=== PATIENT | male | born 1965 | race Caucasian/White ===

== ENCOUNTER 2019-02-18 02:48 | Inpatient (IN) ==
[2019-02-18] MEDS ORDERED: Nitroglycerin 0.4 MG TAB.SUBL SL PRN (04:08)
[2019-02-18] MEDS ORDERED: Dextrose Gel 15 GM/37.5 ML TUBE PO PRN ×2 (04:23)
[2019-02-18] MEDS ORDERED: *HR* Dextrose 50 % in Water (Syg) 50 ML SYRINGE IVP PRN (04:23)
[2019-02-18] MEDS ORDERED: Ipratropium/Albuterol Neb 3 ML IH PRN (04:37)
[2019-02-18] MEDS ORDERED: Ipratropium/Albuterol Neb 3 ML IH STA (04:37)
[2019-02-18] MEDS: *HR* Heparin 5,000 UNIT/ML VIAL SQ SCH ×2 (05:04→16:51)
[2019-02-18] MEDS: 0.9 % Sodium Chloride 1,000 ML IVC SCH ×2 (05:04→06:09)
[2019-02-18] MEDS ORDERED: Insulin LISPRO 300 UNITS/3 ML VIAL SQ SCH ×2 (06:00→11:13)
[2019-02-18 07:34] LABS: Basophils # 0.1 K/mcL (0.0-0.2); Basophils % 0.5 %; Eosinophils # 0.3 K/mcL (0.0-0.6); Hematocrit 32.8 % (37.5-50.1); Hemoglobin 10.3 g/dL (12.9-16.9); Immature Granulocytes % 0.5 % (0-4); Lymphocytes # 2.4 K/mcL (0.6-4.6); Lymphocytes % 23.3 %; Mean Corpuscular HGB Conc 31.4 g/dL (31.6-35.5); Mean Corpuscular Hemoglobin 27.5 pg (28.0-33.3); Mean Corpuscular Volume 87.7 fL (83.0-100.0); Monocytes # 0.9 K/mcL (0.0-1.3); Monocytes % 8.9 %; Neutrophils # 6.7 K/mcL (1.6-8.9); Platelet Count 234 K/mcL (140-400); Red Blood Count 3.74 M/mcL (4.19-5.50); Red Cell Distribution Width 14.8 % (11.5-14.5); Segmented Neutrophils % 63.8 %; White Blood Count 10.5 K/mcL (4.3-11.1)
[2019-02-18 07:51] LABS: Chol/HDL Ratio 2.4 (0-4.9)
[2019-02-18 07:53] LABS: BUN/Creatinine Ratio 16 (6-26); Blood Urea Nitrogen 15 mg/dL (6-20); Calcium 8.7 mg/dL (8.6-10.3); Carbon Dioxide 23 mEq/L (23-29); Chloride 104 mEq/L (98-107); Glucose 136 mg/dL (70-105); Osmolality,Calculated 287 (280-300); Potassium 4.2 mEq/L (3.5-5.1); Sodium 137 mEq/L (136-145); Troponin I < 0.03 ng/mL (< 0.04); eGFR For African Americans > 60 (> 60); eGFR For Non-African Americans > 60 (> 60)
[2019-02-18 08:08] LABS: Estimated Average Glucose 183 mg/dl
[2019-02-18 08:26] LABS: Amphetamine Screen,Urine Negative ng/mL (Cutoff=1000); Barbiturate Screen,Urine Negative ng/mL (Cutoff=200); Benzodiazepines Screen,Urine Negative ng/mL (Cutoff=200); Cannabinoid Screen,Urine Negative ng/mL (Cutoff = 50); Cocaine Screen,Urine Negative ng/mL (Cutoff= 300); Opiate Screen,Urine Negative ng/mL (Cutoff=300); Phencyclidine Screen,Urine Negative ng/mL (Cutoff=25)
[2019-02-18] MEDS ORDERED: ISOSORBIDE MONONITRATE PO SCH (09:00)
[2019-02-18] MEDS ORDERED: NON-FORMULARY MEDICATION 1 EACH EACH (Spironolact/Hydrochlorothiazid [Aldactazide 25-25 Ta PO SCH (09:00)
[2019-02-18] MEDS ORDERED: INSULIN GLARGINE 100 UNIT SQ SCH (09:00)
[2019-02-18] MEDS: Aspirin Enteric Coated 81 MG Tablet PO SCH (10:25)
[2019-02-18] MEDS: Insulin DETEMIR 100 UNIT/ML X5UNITS SQ SCH (11:08)
[2019-02-18] MEDS: Isosorbide MONOnitrate (24 HR) 30 MG TAB.ER.24H PO SCH (13:02)
[2019-02-18] MEDS: Insulin LISPRO 300 UNITS/3 ML VIAL SQ SCH ×2 (13:26→18:19)
[2019-02-19] MEDS: *HR* Heparin 5,000 UNIT/ML VIAL SQ SCH ×2 (05:21→17:51)
[2019-02-19 06:10] LABS: Hematocrit 34.3 % (37.5-50.1); Hemoglobin 10.8 g/dL (12.9-16.9); Mean Corpuscular HGB Conc 31.5 g/dL (31.6-35.5); Mean Corpuscular Hemoglobin 27.3 pg (28.0-33.3); Mean Corpuscular Volume 86.6 fL (83.0-100.0); Mean Platelet Volume 8.8 fL (9.4-12.4); Platelet Count 244 K/mcL (140-400); Red Blood Count 3.96 M/mcL (4.19-5.50); Red Cell Distribution Width 14.6 % (11.5-14.5); White Blood Count 7.4 K/mcL (4.3-11.1)
[2019-02-19 06:32] LABS: BUN/Creatinine Ratio 19 (6-26); Blood Urea Nitrogen 16 mg/dL (6-20); Calcium 9.1 mg/dL (8.6-10.3); Carbon Dioxide 24 mEq/L (23-29); Chloride 101 mEq/L (98-107); Glucose 121 mg/dL (70-105); Magnesium 1.9 mg/dL (1.6-2.6); Osmolality,Calculated 288 (280-300); Potassium 4.5 mEq/L (3.5-5.1); Sodium 138 mEq/L (136-145); eGFR For African Americans > 60 (> 60); eGFR For Non-African Americans > 60 (> 60)
[2019-02-19] MEDS: Aspirin Enteric Coated 81 MG Tablet PO SCH (09:12)
[2019-02-19] MEDS: Isosorbide MONOnitrate (24 HR) 30 MG TAB.ER.24H PO SCH (09:12)
[2019-02-19] MEDS: Insulin LISPRO 300 UNITS/3 ML VIAL SQ SCH ×3 (09:13→17:18)
[2019-02-19] MEDS: Insulin DETEMIR 100 UNIT/ML X5UNITS SQ SCH (09:15)
[2019-02-19] MEDS: Regadenoson 0.4 MG/5 ML SYRINGE IVP ONE ×2 (09:29→10:13)
[2019-02-20 03:20] LABS: Hematocrit 33.6 % (37.5-50.1); Hemoglobin 10.6 g/dL (12.9-16.9); Mean Corpuscular HGB Conc 31.5 g/dL (31.6-35.5); Mean Corpuscular Hemoglobin 27.2 pg (28.0-33.3); Mean Corpuscular Volume 86.2 fL (83.0-100.0); Mean Platelet Volume 9.1 fL (9.4-12.4); Platelet Count 284 K/mcL (140-400); Red Cell Distribution Width 14.7 % (11.5-14.5); White Blood Count 8.5 K/mcL (4.3-11.1)
[2019-02-20 03:40] LABS: BUN/Creatinine Ratio 18 (6-26); Blood Urea Nitrogen 21 mg/dL (6-20); Calcium 8.8 mg/dL (8.6-10.3); Carbon Dioxide 26 mEq/L (23-29); Chloride 99 mEq/L (98-107); Glucose 135 mg/dL (70-105); Magnesium 1.8 mg/dL (1.6-2.6); Osmolality,Calculated 287 (280-300); Potassium 4.3 mEq/L (3.5-5.1); Sodium 136 mEq/L (136-145); eGFR For African Americans > 60 (> 60); eGFR For Non-African Americans > 60 (> 60)
[2019-02-20] MEDS: *HR* Heparin 5,000 UNIT/ML VIAL SQ SCH ×2 (05:10→17:23)
[2019-02-20] MEDS: Insulin LISPRO 300 UNITS/3 ML VIAL SQ SCH ×3 (09:38→17:23)
[2019-02-20] MEDS: Isosorbide MONOnitrate (24 HR) 30 MG TAB.ER.24H PO SCH (11:25)
[2019-02-20] MEDS: Aspirin Enteric Coated 81 MG Tablet PO SCH (11:26)
[2019-02-20] MEDS: Insulin DETEMIR 100 UNIT/ML X5UNITS SQ SCH (11:28)
[2019-02-20] MEDS: Nicotine 21 MG PATCH.TD24 TD SCH (19:55)
[2019-02-20] MEDS: hydrOXYzine pamoate 25 MG CAPSULE PO SCH (19:55)
[2019-02-20] MEDS: (Loxapine Succinate [Loxapine] 25 MG) PO SCH (19:58)
[2019-02-20] MEDS: Budesonide/Formoterol 160/4.5 1 PUFF INH IH SCH (20:03)
[2019-02-21] MEDS: *HR* Heparin 5,000 UNIT/ML VIAL SQ SCH ×2 (05:30→16:58)
[2019-02-21] MEDS: Isosorbide MONOnitrate (24 HR) 30 MG TAB.ER.24H PO SCH (07:39)
[2019-02-21] MEDS: hydrOXYzine pamoate 25 MG CAPSULE PO SCH ×3 (07:39→21:33)
[2019-02-21] MEDS: Metoprolol XL (24 HR) Succ 25 MG TAB.ER.24H PO SCH (07:40)
[2019-02-21] MEDS: Aspirin Enteric Coated 81 MG Tablet PO SCH (07:40)
[2019-02-21] MEDS: Insulin DETEMIR 100 UNIT/ML X5UNITS SQ SCH (07:41)
[2019-02-21] MEDS: Insulin LISPRO 300 UNITS/3 ML VIAL SQ SCH ×3 (07:42→17:00)
[2019-02-21] MEDS: (Loxapine Succinate [Loxapine] 25 MG) PO SCH ×2 (07:44→21:33)
[2019-02-21] MEDS: Budesonide/Formoterol 160/4.5 1 PUFF INH IH SCH ×2 (07:57→19:30)
[2019-02-21] MEDS ORDERED: Adenosine 90 MG/30 ML MLS IV ONE (08:03)
[2019-02-21] MEDS ORDERED: ISOVUE-370 200 ML INFUS..BTL ONE (11:43)
[2019-02-21] MEDS ORDERED: 0.9 % Sodium Chloride 2,000 ML ONE (11:43)
[2019-02-21] MEDS ORDERED: Heparin 1,000 UNITS/500 mL 500 ML ONE (11:43)
[2019-02-21] MEDS ORDERED: Nitroglycerin 1,000 MCG/10 ML VIAL IV ONE (11:43)
[2019-02-21] MEDS ORDERED: *HR* Heparin 10,000 UNIT/10 ML VIAL ONE (11:43)
[2019-02-21] MEDS ORDERED: *HR* Midazolam HCl 2 MG/2 ML VIAL ONE (12:15)
[2019-02-21] MEDS ORDERED: methylPREDNISolone 125 MG/2 ML VIAL ONE (12:16)
[2019-02-21] MEDS ORDERED: *HR* FentaNYL (PF) 100 MCG/2 ML VIAL ONE (12:16)
[2019-02-21] MEDS ORDERED: Tirofiban 12.5 MG/250ML 12.5 MG/250 ML BAG ONE (12:52)
[2019-02-21] MEDS ORDERED: *HR* Ticagrelor 90 MG TABLET ONE (13:05)
[2019-02-21] MEDS ORDERED: Tirofiban 12.5 MG/250ML 12.5 MG/250 ML BAG IVC SCH (13:45)
[2019-02-21] MEDS: Nicotine 21 MG PATCH.TD24 TD SCH (16:59)
[2019-02-21] MEDS: *HR* Ticagrelor 90 MG TABLET PO SCH (21:33)
[2019-02-21] MEDS ORDERED: Insulin LISPRO 300 UNITS/3 ML VIAL SQ SCH (21:55)
[2019-02-22 02:17] LABS: Basophils % 0.1 %; Hemoglobin 10.5 g/dL (12.9-16.9); Immature Granulocytes % 0.7 % (0-4); Lymphocytes # 0.8 K/mcL (0.6-4.6); Mean Corpuscular HGB Conc 31.8 g/dL (31.6-35.5); Mean Corpuscular Hemoglobin 26.8 pg (28.0-33.3); Mean Corpuscular Volume 84.2 fL (83.0-100.0); Mean Platelet Volume 8.7 fL (9.4-12.4); Monocytes # 0.4 K/mcL (0.0-1.3); Monocytes % 5.4 %; Neutrophils # 6.7 K/mcL (1.6-8.9); Platelet Count 282 K/mcL (140-400); Red Blood Count 3.92 M/mcL (4.19-5.50); Red Cell Distribution Width 14.5 % (11.5-14.5); Segmented Neutrophils % 83.8 %
[2019-02-22 02:35] LABS: BUN/Creatinine Ratio 19 (6-26); Blood Urea Nitrogen 19 mg/dL (6-20); Calcium 8.9 mg/dL (8.6-10.3); Carbon Dioxide 21 mEq/L (23-29); Chloride 100 mEq/L (98-107); Glucose 250 mg/dL (70-105); Osmolality,Calculated 287 (280-300); Potassium 4.5 mEq/L (3.5-5.1); Sodium 133 mEq/L (136-145); eGFR For African Americans > 60 (> 60); eGFR For Non-African Americans > 60 (> 60)
[2019-02-22] MEDS: *HR* Heparin 5,000 UNIT/ML VIAL SQ SCH (04:56)
[2019-02-22] MEDS: Budesonide/Formoterol 160/4.5 1 PUFF INH IH SCH (07:45)
[2019-02-22] MEDS ORDERED: Aspirin 81 MG TAB.CHEW PO SCH (09:00)
[2019-02-22] MEDS: Insulin LISPRO 300 UNITS/3 ML VIAL SQ SCH (09:33)
[2019-02-22] MEDS: *HR* Ticagrelor 90 MG TABLET PO SCH (09:34)
[2019-02-22] MEDS: hydrOXYzine pamoate 25 MG CAPSULE PO SCH (09:35)
[2019-02-22] MEDS: Aspirin Enteric Coated 81 MG Tablet PO SCH (09:35)
[2019-02-22] MEDS: Isosorbide MONOnitrate (24 HR) 30 MG TAB.ER.24H PO SCH (09:35)
[2019-02-22] MEDS: (Loxapine Succinate [Loxapine] 25 MG) PO SCH (09:35)
[2019-02-22] MEDS: Metoprolol XL (24 HR) Succ 25 MG TAB.ER.24H PO SCH (09:38)
[2019-02-22 11:03] VITALS: BP 129/79
== END 2019-02-22 12:30 | disposition home or self-care (01) | DRG 175 ==
LOC: 3BNU → SUATTDRO 04:02
PROVIDERS: ADMIT Internal Medicine; ATTEND Internal Medicine

== ENCOUNTER 2019-03-02 23:36 | Observation (INO) ==
[2019-03-03] MEDS ORDERED: Aspirin 81 MG TAB.CHEW PO ONE (00:01)
[2019-03-03 00:49] LABS: Basophils # 0.1 K/mcL (0.0-0.2); Basophils % 0.6 %; Eosinophils # 0.3 K/mcL (0.0-0.6); Hematocrit 36.4 % (37.5-50.1); Immature Granulocytes % 0.9 % (0-4); Lymphocytes # 3.2 K/mcL (0.6-4.6); Lymphocytes % 28.2 %; Mean Corpuscular Hemoglobin 27.4 pg (28.0-33.3); Mean Corpuscular Volume 83.1 fL (83.0-100.0); Mean Platelet Volume 8.5 fL (9.4-12.4); Monocytes # 0.8 K/mcL (0.0-1.3); Monocytes % 6.8 %; Neutrophils # 6.9 K/mcL (1.6-8.9); Platelet Count 271 K/mcL (140-400); Red Blood Count 4.38 M/mcL (4.19-5.50); Red Cell Distribution Width 14.9 % (11.5-14.5); Segmented Neutrophils % 60.5 %; White Blood Count 11.4 K/mcL (4.3-11.1)
[2019-03-03 01:00] LABS: Prothrombin Time 11.2 Seconds (9.4-12.1)
[2019-03-03 01:02] LABS: Activated Partial Thrombo Time 38.9 Seconds (26.0-36.0)
[2019-03-03 01:14] LABS: BUN/Creatinine Ratio 14 (6-26); Blood Urea Nitrogen 14 mg/dL (6-20); Calcium 9.2 mg/dL (8.6-10.3); Carbon Dioxide 20 mEq/L (23-29); Chloride 102 mEq/L (98-107); Glucose 197 mg/dL (70-105); Osmolality,Calculated 282 (280-300); Potassium 3.9 mEq/L (3.5-5.1); Sodium 133 mEq/L (136-145); Troponin I < 0.03 ng/mL (< 0.04); eGFR For African Americans > 60 (> 60); eGFR For Non-African Americans > 60 (> 60)
[2019-03-03] MEDS ORDERED: Albuterol 2.5 MG/3 ML NEBULIZER IH ONE (01:22)
[2019-03-03] MEDS ORDERED: Nitroglycerin 0.4 MG TAB.SUBL SL PRN (02:17)
[2019-03-03] MEDS ORDERED: Dextrose Gel 15 GM/37.5 ML TUBE PO PRN ×2 (06:33)
[2019-03-03] MEDS ORDERED: *HR* Dextrose 50 % in Water (Syg) 50 ML SYRINGE IVP PRN (06:33)
[2019-03-03] MEDS ORDERED: D5% in Water 1,000 ML IVC PRN (06:33)
[2019-03-03 06:47] LABS: Basophils # 0.1 K/mcL (0.0-0.2); Basophils % 0.7 %; Eosinophils # 0.3 K/mcL (0.0-0.6); Eosinophils % 3.4 %; Hematocrit 37.8 % (37.5-50.1); Lymphocytes # 2.3 K/mcL (0.6-4.6); Lymphocytes % 27.8 %; Mean Corpuscular HGB Conc 31.7 g/dL (31.6-35.5); Mean Corpuscular Hemoglobin 27.4 pg (28.0-33.3); Mean Corpuscular Volume 86.3 fL (83.0-100.0); Mean Platelet Volume 8.5 fL (9.4-12.4); Monocytes # 0.6 K/mcL (0.0-1.3); Monocytes % 6.8 %; Neutrophils # 4.9 K/mcL (1.6-8.9); Platelet Count 229 K/mcL (140-400); Red Blood Count 4.38 M/mcL (4.19-5.50); Red Cell Distribution Width 14.9 % (11.5-14.5); Segmented Neutrophils % 60.3 %; White Blood Count 8.2 K/mcL (4.3-11.1)
[2019-03-03 07:03] LABS: BUN/Creatinine Ratio 13 (6-26); Blood Urea Nitrogen 13 mg/dL (6-20); Calcium 9.2 mg/dL (8.6-10.3); Carbon Dioxide 22 mEq/L (23-29); Chloride 104 mEq/L (98-107); Glucose 187 mg/dL (70-105); Osmolality,Calculated 289 (280-300); Potassium 3.8 mEq/L (3.5-5.1); Sodium 137 mEq/L (136-145); eGFR For African Americans > 60 (> 60); eGFR For Non-African Americans > 60 (> 60)
[2019-03-03] MEDS ORDERED: Metoprolol XL (24 HR) Succ 25 MG TAB.ER.24H PO SCH (09:00)
[2019-03-03] MEDS ORDERED: *HR* Ticagrelor 90 MG TABLET PO SCH (09:00)
[2019-03-03] MEDS ORDERED: Aspirin Enteric Coated 81 MG Tablet PO SCH (09:00)
[2019-03-03] MEDS: *HR* Heparin 5,000 UNIT/ML VIAL SQ SCH ×2 (10:28→13:37)
[2019-03-03] MEDS ORDERED: Insulin LISPRO 300 UNITS/3 ML VIAL SQ SCH (12:00)
[2019-03-03 12:07] VITALS: BP 116/77
== END 2019-03-03 16:34 | disposition home or self-care (01) ==
LOC: EMEROOARM 23:36 → 2ANU 23:36 → SUATTDRO 03-03 01:47 → 2ANU 03-03 02:05
PROVIDERS: ADMIT Internal Medicine; ATTEND Internal Medicine

== ENCOUNTER 2019-12-10 14:00 | Inpatient (IN) ==
[2019-12-10] MEDS ORDERED: Clindamycin 900 MG/50 ML 900 MG/50 ML IV.SOLN IVPB ONE (14:08)
[2019-12-10] MEDS ORDERED: Ringers Solution, Lactated 1,000 ML IVC SCH ×4 (14:15→21:19)
[2019-12-10] MEDS ORDERED: *HR* OxyCODONE Immed Rel 5 MG TABLET PO PRN ×2 (15:04→21:19)
[2019-12-10] MEDS ORDERED: Ondansetron 4 MG/2 ML VIAL IVP PRN ×2 (15:04→21:19)
[2019-12-10 15:16] LABS: Adenovirus Not Detected (Not Detect); Bordetella Pertussis Not Detected (Not Detect); Chlamydophila pneumoniae Not Detected (Not Detect); Coronavirus 229E Not Detected (Not Detect); Coronavirus HKU1 Not Detected (Not Detect); Coronavirus NL63 Not Detected (Not Detect); Coronavirus OC43 Not Detected (Not Detect); Human Metapneumovirus Not Detected (Not Detect); Human Rhinovirus/Enterovirus Not Detected (Not Detect); Influenza A Subtype 2009 H1 Not Detected (Not Detect); Influenza B Not Detected (Not Detect); Mycoplasma pneumoniae Not Detected (Not Detect); Parainfluenza Virus 1 Not Detected (Not Detect); Parainfluenza Virus 2 Not Detected (Not Detect); Parainfluenza Virus 3 Not Detected (Not Detect); Parainfluenza Virus 4 Not Detected (Not Detect); Respiratory Syncytial Virus Not Detected (Not Detect); SARS-CoV-2 Not Detected (Not Detect)
[2019-12-10] MEDS ORDERED: Lidocaine -MPF 2% 2 ML VIAL ONE (15:44)
[2019-12-10] MEDS ORDERED: *HR* FentaNYL (PF) 100 MCG/2 ML VIAL ONE (15:44)
[2019-12-10] MEDS ORDERED: Ondansetron 4 MG/2 ML VIAL ONE (15:44)
[2019-12-10] MEDS ORDERED: *HR* Rocuronium Bromide 50 MG/5 ML VIAL ONE ×2 (15:44→17:17)
[2019-12-10] MEDS ORDERED: *HR* Succinylcholine 200 MG/10 ML VIAL IVP ONE (15:44)
[2019-12-10] MEDS ORDERED: *HR* Propofol 200 MG/20 ML VIAL IVP ONE (15:44)
[2019-12-10] MEDS ORDERED: Lidocaine -MPF 4% 5 ML AMPUL ONE (15:46)
[2019-12-10] MEDS ORDERED: D5% in Lactated Ringers 1,000 ML IVC ONE (15:55)
[2019-12-10] MEDS ORDERED: Dexamethasone 4 MG/ML VIAL ONE (17:02)
[2019-12-10] MEDS ORDERED: *HR* Labetalol 20 MG/4 ML SYRINGE IVP ONE (17:04)
[2019-12-10] MEDS ORDERED: *HR* PHENYLEPHRINE 1,000 MCG/10 ML SYRINGE IVP ONE (17:16)
[2019-12-10] MEDS ORDERED: Ipratropium/Albuterol Neb 3 ML ONE (18:54)
[2019-12-10] MEDS ORDERED: Furosemide 40 MG/4 ML VIAL ONE (19:02)
[2019-12-10] MEDS: *HR* HYDROmorphone PF 0.5 MG/0.5 ML SYRINGE IVP PRN ×4 (19:12→20:06)
[2019-12-10] MEDS ORDERED: Acetaminophen IV 1,000 MG/100 ML INFUS..BTL IVPB ONE (19:42)
[2019-12-10] MEDS ORDERED: *HR* Dextrose 50 % in Water (Vial) 50 ML VIAL IVP PRN (21:19)
[2019-12-10] MEDS ORDERED: D5% in Water 1,000 ML IVC PRN (21:19)
[2019-12-10] MEDS ORDERED: Naloxone 0.4 MG/ML INJ IVP PRN (21:19)
[2019-12-10] MEDS ORDERED: Dextrose Gel 15 GM/37.5 ML TUBE PO PRN ×2 (21:19)
[2019-12-10] MEDS ORDERED: 0.9 % Sodium Chloride 1,000 ML IVC SCH (21:19)
[2019-12-10] MEDS ORDERED: Insulin LISPRO 300 UNITS/3 ML VIAL SQ SCH (21:19)
[2019-12-10] MEDS: Ipratropium/Albuterol Neb 3 ML IH SCH ×2 (22:03→23:30)
[2019-12-10] MEDS: Budesonide/Formoterol 160/4.5 1 PUFF INH IH SCH (22:04)
[2019-12-10] MEDS: Insulin DETEMIR 100 UNIT/ML X5UNITS SQ SCH (22:50)
[2019-12-10] MEDS: *HR* Heparin 5,000 UNIT/ML VIAL SQ SCH (22:50)
[2019-12-10] MEDS: Ketorolac 15 MG/ML VIAL IVP SCH (22:51)
[2019-12-10] MEDS: hydrOXYzine pamoate 25 MG CAPSULE PO SCH (22:52)
[2019-12-10] MEDS: Gabapentin 300 MG CAPSULE PO SCH (22:52)
[2019-12-10] MEDS: Sennosides/Docusate Sodium TABLET PO SCH (22:52)
[2019-12-10] MEDS: *HR* Metformin 500 MG TABLET PO SCH (22:52)
[2019-12-10] MEDS: QUEtiapine Fumarate 25 MG TABLET PO SCH (22:52)
[2019-12-10] MEDS: *HR* HYDROcodone/Acet 5/325 mg TABLET PO PRN (23:16)
[2019-12-11] MEDS: (Loxapine Succinate [Loxapine] 25 MG) PO SCH ×3 (02:21→21:36)
[2019-12-11] MEDS: Famotidine 20 MG TABLET PO SCH ×3 (03:29→21:34)
[2019-12-11] MEDS: Nystatin POWDER 30 GM BOTTLE TP SCH ×4 (03:30→21:34)
[2019-12-11] MEDS: *HR* HYDROcodone/Acet 5/325 mg TABLET PO PRN ×4 (03:31→21:33)
[2019-12-11] MEDS: Ipratropium/Albuterol Neb 3 ML IH SCH ×5 (04:00→20:27)
[2019-12-11 05:06] LABS: Hematocrit 36.9 % (37.5-50.1); Hemoglobin 11.6 g/dL (12.9-16.9); Mean Corpuscular HGB Conc 31.4 g/dL (31.6-35.5); Mean Corpuscular Hemoglobin 28.3 pg (28.0-33.3); Mean Platelet Volume 8.8 fL (9.4-12.4); Platelet Count 237 K/mcL (140-400); Red Cell Distribution Width 13.9 % (11.5-14.5)
[2019-12-11 05:14] LABS: % Iron Saturation 6 % (20-55); BUN/Creatinine Ratio 19 (6-26); Blood Urea Nitrogen 22 mg/dL (6-20); Calcium 8.6 mg/dL (8.6-10.3); Carbon Dioxide 23 mEq/L (23-29); Chloride 98 mEq/L (98-107); Glucose 301 mg/dL (70-105); Iron 23 mcg/dL (65-175); Osmolality,Calculated 287 (280-300); Potassium 5.8 mEq/L (3.5-5.1); Sodium 131 mEq/L (136-145); Transferrin 279 mg/dL (203-362); White Blood Count 18.4 K/mcL (4.3-11.1); eGFR For African Americans > 60 (> 60); eGFR For Non-African Americans > 60 (> 60)
[2019-12-11] MEDS: Ketorolac 15 MG/ML VIAL IVP SCH ×3 (06:00→16:53)
[2019-12-11] MEDS: *HR* Heparin 5,000 UNIT/ML VIAL SQ SCH ×3 (06:00→21:33)
[2019-12-11] MEDS: Budesonide/Formoterol 160/4.5 1 PUFF INH IH SCH ×2 (07:25→20:27)
[2019-12-11] MEDS: Metoprolol XL (24 HR) Succ 25 MG TAB.ER.24H PO SCH (08:23)
[2019-12-11] MEDS: Sennosides/Docusate Sodium TABLET PO SCH ×2 (08:23→21:34)
[2019-12-11] MEDS: hydrOXYzine pamoate 25 MG CAPSULE PO SCH ×3 (08:23→21:34)
[2019-12-11] MEDS: Gabapentin 300 MG CAPSULE PO SCH ×3 (08:23→21:33)
[2019-12-11] MEDS: Isosorbide MONOnitrate (24 HR) 30 MG TAB.ER.24H PO SCH (08:23)
[2019-12-11] MEDS: *HR* Metformin 500 MG TABLET PO SCH ×2 (08:23→21:33)
[2019-12-11] MEDS: Insulin LISPRO 300 UNITS/3 ML VIAL SQ SCH ×3 (08:24→16:54)
[2019-12-11] MEDS: Aspirin Enteric Coated 81 MG Tablet PO SCH (08:28)
[2019-12-11] MEDS: Insulin DETEMIR 100 UNIT/ML X5UNITS SQ SCH ×2 (08:30→21:35)
[2019-12-11] MEDS ORDERED: *HR* SitaGLIPtin 100 MG TABLET PO SCH (09:00)
[2019-12-11] MEDS: QUEtiapine Fumarate 25 MG TABLET PO SCH ×2 (09:17→21:34)
[2019-12-11] MEDS ORDERED: Iron Sucrose Complex 400 MG in 0.9 % Sodium Chloride 250 ML IVPB ONE (12:21)
[2019-12-11] MEDS ORDERED: Thiamine (B-1) 100 MG in 0.9 % Sodium Chloride 50 ML IVPB ONE (12:21)
[2019-12-11] MEDS ORDERED: Folic Acid 1 MG in 0.9 % Sodium Chloride 50 ML IVPB ONE (12:21)
[2019-12-11] MEDS ORDERED: Insulin LISPRO 300 UNITS/3 ML VIAL SQ SCH (21:00)
[2019-12-12] MEDS: Ipratropium/Albuterol Neb 3 ML IH SCH ×8 (00:25→23:29)
[2019-12-12] MEDS: Ketorolac 15 MG/ML VIAL IVP SCH ×2 (00:53→05:29)
[2019-12-12 02:11] LABS: BUN/Creatinine Ratio 25 (6-26); Blood Urea Nitrogen 29 mg/dL (6-20); Calcium 8.7 mg/dL (8.6-10.3); Carbon Dioxide 22 mEq/L (23-29); Chloride 99 mEq/L (98-107); Glucose 201 mg/dL (70-105); Osmolality,Calculated 284 (280-300); Potassium 5.2 mEq/L (3.5-5.1); Sodium 131 mEq/L (136-145); eGFR For African Americans > 60 (> 60); eGFR For Non-African Americans > 60 (> 60)
[2019-12-12 02:13] LABS: ABG Base Excess -1 mEq/L (-2 to 3); ABG HCO3 25 mEq/L (21-27); ABG Oxygen Saturation 89 % (95-98); ABG PCO2 43 mmHg (35-45); ABG PH 7.37 pH Units (7.32-7.45); ABG PO2 59 mmHg (85-104); ABG TCO2 26 mEq/L (20-26)
[2019-12-12] MEDS ORDERED: Furosemide 40 MG/4 ML VIAL ONE (02:35)
[2019-12-12] MEDS ORDERED: *HR* HYDROmorphone (PF) 1 MG/ML SYRINGE IVP PRN (02:41)
[2019-12-12] MEDS ORDERED: Furosemide 40 MG/4 ML VIAL IVP ONE (02:46)
[2019-12-12] MEDS: Clindamycin 600 MG/50 ML 600 MG/50 ML IV.SOLN IVPB SCH ×4 (03:06→21:12)
[2019-12-12] MEDS: Levalbuterol Neb 1.25 MG/3 ML IH SCH ×3 (03:21→15:40)
[2019-12-12] MEDS ORDERED: methylPREDNISolone 125 MG/2 ML VIAL IVP SCH (03:40)
[2019-12-12 03:48] LABS: Basophils # 0.1 K/mcL (0.0-0.2); Basophils % 0.3 %; Eosinophils % 0.1 %; Hematocrit 38.8 % (37.5-50.1); Immature Granulocytes % 0.8 % (0-4); Lymphocytes # 0.8 K/mcL (0.6-4.6); Lymphocytes % 4.1 %; Mean Corpuscular HGB Conc 30.9 g/dL (31.6-35.5); Mean Corpuscular Hemoglobin 28.4 pg (28.0-33.3); Mean Corpuscular Volume 91.9 fL (83.0-100.0); Mean Platelet Volume 8.7 fL (9.4-12.4); Monocytes # 1.2 K/mcL (0.0-1.3); Monocytes % 6.1 %; Neutrophils # 17.4 K/mcL (1.6-8.9); Platelet Count 284 K/mcL (140-400); Red Blood Count 4.22 M/mcL (4.19-5.50); Red Cell Distribution Width 14.4 % (11.5-14.5); Segmented Neutrophils % 88.6 %; White Blood Count 19.6 K/mcL (4.3-11.1)
[2019-12-12] MEDS ORDERED: *HR* FentaNYL (PF) 100 MCG/2 ML VIAL IVP ONE (03:57)
[2019-12-12] MEDS: FentaNYL (PF) 1,000 MCG/100 ML IV.SOLN IVC SCH ×3 (04:02→22:02)
[2019-12-12] MEDS: *HR* Heparin 5,000 UNIT/ML VIAL SQ SCH ×3 (05:28→21:12)
[2019-12-12] MEDS ORDERED: Artificial Tears SOLN 15 ML BOTTLE BOTH EYES PRN (05:30)
[2019-12-12 05:57] LABS: ABG Base Excess -1 mEq/L (-2 to 3); ABG HCO3 28 mEq/L (21-27); ABG Oxygen Saturation 91 % (95-98); ABG PCO2 65 mmHg (35-45); ABG PH 7.24 pH Units (7.32-7.45); ABG PO2 73 mmHg (85-104); ABG TCO2 30 mEq/L (20-26); Blood Gas Modality ASSIST CONTROL; Blood Gas VT 450 cc
[2019-12-12] MEDS: Aspirin Enteric Coated 81 MG Tablet PO SCH (07:48)
[2019-12-12] MEDS ORDERED: Ipratropium/Albuterol Neb 3 ML ONE ×2 (07:57→17:21)
[2019-12-12] MEDS: Artificial Tears SOLN 15 ML BOTTLE BOTH EYES SCH ×4 (08:02→21:14)
[2019-12-12] MEDS: Chlorhexidine Rinse 15 ML MOUTHWASH MM SCH ×2 (08:03→21:12)
[2019-12-12] MEDS: QUEtiapine Fumarate 25 MG TABLET PO SCH (08:04)
[2019-12-12] MEDS: Metoprolol XL (24 HR) Succ 25 MG TAB.ER.24H PO SCH (08:04)
[2019-12-12] MEDS: Famotidine 20 MG TABLET PO SCH (08:04)
[2019-12-12] MEDS: Sennosides/Docusate Sodium TABLET PO SCH (08:04)
[2019-12-12] MEDS: Isosorbide MONOnitrate (24 HR) 30 MG TAB.ER.24H PO SCH (08:06)
[2019-12-12] MEDS: Gabapentin 300 MG CAPSULE PO SCH (08:06)
[2019-12-12] MEDS: Insulin LISPRO 300 UNITS/3 ML VIAL SQ SCH ×4 (08:07→22:11)
[2019-12-12] MEDS: Nystatin POWDER 30 GM BOTTLE TP SCH ×3 (08:13→21:12)
[2019-12-12] MEDS: hydrOXYzine pamoate 25 MG CAPSULE PO SCH (08:24)
[2019-12-12] MEDS ORDERED: 0.9 % Sodium Chloride 250 ML ONE (08:33)
[2019-12-12] MEDS ORDERED: *HR* Norepinephrine 4 MG/4 ML VIAL IVC ONE (08:33)
[2019-12-12] MEDS: Norepinephrine 4 MG/254 ML IV.SOLN IVC SCH ×4 (08:45→20:15)
[2019-12-12] MEDS ORDERED: Pantoprazole 40 MG VIAL IVP SCH (09:00)
[2019-12-12] MEDS ORDERED: Vancomycin 2,000 MG/520 ML IV.SOLN IVPB ONE (09:30)
[2019-12-12 10:23] LABS: Estimated Average Glucose 203 mg/dl
[2019-12-12] MEDS: Insulin DETEMIR 100 UNIT/ML X5UNITS SQ SCH ×2 (10:34→21:58)
[2019-12-12] MEDS ORDERED: *HR* Etomidate 20 MG/10 ML AMPUL IVP ONE (10:35)
[2019-12-12] MEDS ORDERED: *HR* Midazolam HCl 5 MG/5 ML VIAL IVP ONE (10:35)
[2019-12-12] MEDS ORDERED: *HR* Propofol 200 MG/20 ML VIAL IVP ONE (10:35)
[2019-12-12 10:38] LABS: ABG Base Excess -4 mEq/L (-2 to 3); ABG HCO3 28 mEq/L (21-27); ABG Oxygen Saturation 96 % (95-98); ABG PCO2 88 mmHg (35-45); ABG PH 7.12 pH Units (7.32-7.45); ABG PO2 115 mmHg (85-104); ABG TCO2 31 mEq/L (20-26); Blood Gas Modality ASSIST CONTROL; Blood Gas VT 450 cc
[2019-12-12] MEDS: methylPREDNISolone 125 MG/2 ML VIAL IVP SCH ×2 (10:40→16:52)
[2019-12-12] MEDS: Budesonide/Formoterol 160/4.5 1 PUFF INH IH SCH ×2 (10:52→19:36)
[2019-12-12] MEDS: Pantoprazole 40 MG VIAL IVP SCH ×2 (10:56→18:21)
[2019-12-12] MEDS: (Loxapine Succinate [Loxapine] 25 MG) PO SCH ×2 (12:13→21:13)
[2019-12-12] MEDS: Meropenem 1,000 MG in Water for inj. (sterile) 20 ML IVP SCH ×2 (12:22→21:10)
[2019-12-12] MEDS: Cisatracurium 200 MG in 0.9 % Sodium Chloride 180 ML IVC SCH ×2 (12:44→21:18)
[2019-12-12 14:53] LABS: ABG Base Excess -4 mEq/L (-2 to 3); ABG HCO3 26 mEq/L (21-27); ABG Oxygen Saturation 90 % (95-98); ABG PCO2 72 mmHg (35-45); ABG PH 7.17 pH Units (7.32-7.45); ABG PO2 76 mmHg (85-104); ABG TCO2 29 mEq/L (20-26); Blood Gas VT 550 cc
[2019-12-12] MEDS: Sennosides/Docusate Sodium TABLET GTUBE SCH (21:11)
[2019-12-12] MEDS: QUEtiapine Fumarate 25 MG TABLET GTUBE SCH (21:11)
[2019-12-12] MEDS ORDERED: Vancomycin 1,750 MG/517.5 ML IV.SOLN IVPB SCH (21:30)
[2019-12-12 23:09] LABS: Appearance of Body Fluid Cloudy (Clear)
[2019-12-12 23:10] LABS: Volume of Body Fluid 9 mL
[2019-12-12 23:15] LABS: Appearance of Body Fluid Cloudy (Clear); Volume of Body Fluid 15 mL
[2019-12-13] MEDS: methylPREDNISolone 125 MG/2 ML VIAL IVP SCH ×4 (00:23→23:57)
[2019-12-13] MEDS: Artificial Tears SOLN 15 ML BOTTLE BOTH EYES SCH ×7 (00:23→23:52)
[2019-12-13] MEDS: Insulin LISPRO 300 UNITS/3 ML VIAL SQ SCH ×3 (00:24→07:13)
[2019-12-13] MEDS: Vancomycin 1,750 MG/517.5 ML IV.SOLN IVPB SCH ×2 (00:24→10:01)
[2019-12-13] MEDS: Norepinephrine 4 MG/254 ML IV.SOLN IVC SCH ×3 (01:15→17:38)
[2019-12-13] MEDS: Ipratropium/Albuterol Neb 3 ML IH SCH ×12 (01:20→23:44)
[2019-12-13] MEDS: Clindamycin 600 MG/50 ML 600 MG/50 ML IV.SOLN IVPB SCH ×2 (03:00→07:07)
[2019-12-13] MEDS: FentaNYL (PF) 1,000 MCG/100 ML IV.SOLN IVC SCH ×2 (04:43→09:19)
[2019-12-13 04:45] LABS: ABG Base Excess -3 mEq/L (-2 to 3); ABG HCO3 25 mEq/L (21-27); ABG Oxygen Saturation 98 % (95-98); ABG PCO2 56 mmHg (35-45); ABG PH 7.25 pH Units (7.32-7.45); ABG PO2 134 mmHg (85-104); ABG TCO2 26 mEq/L (20-26); Blood Gas Modality ASSIST CONTROL; Blood Gas VT 550 cc
[2019-12-13 05:20] LABS: Mean Corpuscular HGB Conc 30.6 g/dL (31.6-35.5); Mean Corpuscular Hemoglobin 28.6 pg (28.0-33.3); Mean Corpuscular Volume 93.5 fL (83.0-100.0); Platelet Count 294 K/mcL (140-400); Red Blood Count 3.85 M/mcL (4.19-5.50); Red Cell Distribution Width 14.2 % (11.5-14.5); White Blood Count 20.5 K/mcL (4.3-11.1)
[2019-12-13 05:31] LABS: Calcium 8.2 mg/dL (8.6-10.3)
[2019-12-13 05:33] LABS: Magnesium 2.1 mg/dL (1.6-2.6); Phosphorous 3.2 mg/dL (2.7-4.5)
[2019-12-13] MEDS: Pantoprazole 40 MG VIAL IVP SCH (05:35)
[2019-12-13] MEDS: Meropenem 1,000 MG in Water for inj. (sterile) 20 ML IVP SCH ×3 (05:36→20:46)
[2019-12-13] MEDS: *HR* Heparin 5,000 UNIT/ML VIAL SQ SCH ×3 (05:38→21:03)
[2019-12-13 06:31] LABS: Acinetobacter baumannii by PCR Not Detected (Not Detect); Enterobacter cloacae Cmplx PCR Not Detected (Not Detect); Enterobacteriaceae by PCR Not Detected (Not Detect); Enterococcus by PCR Not Detected (Not Detect); Escherichia coli by PCR Not Detected (Not Detect); Klebsiella oxytoca by PCR Not Detected (Not Detect); Klebsiella pneumoniae by PCR Not Detected (Not Detect); Proteus by PCR Not Detected (Not Detect); Serratia marcescens by PCR Not Detected (Not Detect); Staphylococcus aureus by PCR Not Detected (Not Detect); Staphylococcus by PCR Not Detected (Not Detect); Streptococcus agalactiae(B)PCR Not Detected (Not Detect); Streptococcus by PCR Not Detected (Not Detect); Streptococcus pneumoniae PCR Not Detected (Not Detect); Streptococcus pyogenes (A) PCR Not Detected (Not Detect); blaKPC Carbapenem-Resist Gene Not Detected (Not Detect); mecA Methicillin-Resist Gene Not Detected (Not Detect); vanA/B Vancomycin-Resist Genes Not Detected (Not Detect)
[2019-12-13 06:32] LABS: Candida albicans by PCR Not Detected (Not Detect); Candida glabrata by PCR Not Detected (Not Detect); Candida krusei by PCR Not Detected (Not Detect); Candida parapsilosis by PCR Not Detected (Not Detect); Candida tropicalis by PCR Not Detected (Not Detect); Pseudomonas aeruginosa by PCR DETECTED (Not Detect)
[2019-12-13] MEDS: Insulin DETEMIR 100 UNIT/ML X5UNITS SQ SCH (07:07)
[2019-12-13] MEDS: Chlorhexidine Rinse 15 ML MOUTHWASH MM SCH ×2 (07:11→20:46)
[2019-12-13] MEDS: Sennosides/Docusate Sodium TABLET GTUBE SCH ×2 (07:12→20:47)
[2019-12-13] MEDS: QUEtiapine Fumarate 25 MG TABLET GTUBE SCH ×2 (07:12→20:47)
[2019-12-13] MEDS: Nystatin POWDER 30 GM BOTTLE TP SCH ×3 (07:12→21:03)
[2019-12-13] MEDS: Aspirin Enteric Coated 81 MG Tablet PO SCH (07:12)
[2019-12-13] MEDS: Budesonide/Formoterol 160/4.5 1 PUFF INH IH SCH ×2 (07:13→19:58)
[2019-12-13] MEDS ORDERED: Acetaminophen IV 1,000 MG/100 ML INFUS..BTL IVPB ONE (07:15)
[2019-12-13] MEDS: (Loxapine Succinate [Loxapine] 25 MG) PO SCH ×2 (07:26→20:47)
[2019-12-13] MEDS: Cisatracurium 200 MG in 0.9 % Sodium Chloride 180 ML IVC SCH (07:28)
[2019-12-13] MEDS: Midazolam HCl 50 MG/100 ML IV.SOLN IVC SCH ×3 (08:31→20:40)
[2019-12-13] MEDS ORDERED: *HR* Dextrose 50 % in Water (Vial) 50 ML VIAL IVP PRN (10:38)
[2019-12-13] MEDS: Insulin Human Regular 100 UNIT in 0.9 % Sodium Chloride 100 ML IVC SCH ×2 (11:13→17:10)
[2019-12-13] MEDS ORDERED: Acetaminophen IV 1,000 MG/100 ML INFUS..BTL IVPB SCH (12:00)
[2019-12-13] MEDS: FentaNYL (PF) 2,500 MCG/50 ML IV.SOLN IVPB SCH ×2 (12:32→13:19)
[2019-12-13] MEDS ORDERED: Vancomycin 1 EACH in 0.9 % Sodium Chloride 250 ML IVPB PRN (14:00)
[2019-12-13 14:31] LABS: Calcium 8.5 mg/dL (8.6-10.3)
[2019-12-13 18:07] LABS: Calcium 8.2 mg/dL (8.6-10.3); Potassium 4.8 mEq/L (3.5-5.1)
[2019-12-14] MEDS: Insulin Human Regular 100 UNIT in 0.9 % Sodium Chloride 100 ML IVC SCH ×5 (00:06→20:58)
[2019-12-14] MEDS: Ipratropium/Albuterol Neb 3 ML IH SCH ×11 (01:44→21:37)
[2019-12-14] MEDS: FentaNYL (PF) 2,500 MCG/50 ML IV.SOLN IVPB SCH ×2 (01:45→18:47)
[2019-12-14] MEDS: Artificial Tears SOLN 15 ML BOTTLE BOTH EYES SCH ×5 (03:23→20:00)
[2019-12-14] MEDS: Meropenem 1,000 MG in Water for inj. (sterile) 20 ML IVP SCH ×3 (03:23→20:00)
[2019-12-14] MEDS: Midazolam HCl 50 MG/100 ML IV.SOLN IVC SCH ×2 (03:28→08:51)
[2019-12-14 04:33] LABS: Basophils % 0.1 %; Calcium 8.4 mg/dL (8.6-10.3); Hematocrit 30.9 % (37.5-50.1); Hemoglobin 9.5 g/dL (12.9-16.9); Lymphocytes # 0.7 K/mcL (0.6-4.6); Lymphocytes % 4.6 %; Magnesium 2.3 mg/dL (1.6-2.6); Mean Corpuscular HGB Conc 30.7 g/dL (31.6-35.5); Mean Corpuscular Hemoglobin 27.5 pg (28.0-33.3); Mean Corpuscular Volume 89.6 fL (83.0-100.0); Mean Platelet Volume 9.5 fL (9.4-12.4); Monocytes % 6.6 %; Neutrophils # 12.7 K/mcL (1.6-8.9); Phosphorous 3.4 mg/dL (2.7-4.5); Platelet Count 214 K/mcL (140-400); Potassium 4.2 mEq/L (3.5-5.1); Red Blood Count 3.45 M/mcL (4.19-5.50); Segmented Neutrophils % 87.7 %; White Blood Count 14.5 K/mcL (4.3-11.1)
[2019-12-14 04:50] LABS: ABG Base Excess -1 mEq/L (-2 to 3); ABG HCO3 24 mEq/L (21-27); ABG Oxygen Saturation 94 % (95-98); ABG PCO2 42 mmHg (35-45); ABG PH 7.37 pH Units (7.32-7.45); ABG PO2 73 mmHg (85-104); ABG TCO2 25 mEq/L (20-26); Blood Gas VT 550 cc
[2019-12-14 05:11] LABS: Platelet Estimate Normal (Normal)
[2019-12-14] MEDS: Cisatracurium 200 MG in 0.9 % Sodium Chloride 180 ML IVC SCH (05:28)
[2019-12-14] MEDS: *HR* Heparin 5,000 UNIT/ML VIAL SQ SCH ×3 (05:28→23:19)
[2019-12-14] MEDS: methylPREDNISolone 125 MG/2 ML VIAL IVP SCH ×2 (07:04→15:00)
[2019-12-14] MEDS: Chlorhexidine Rinse 15 ML MOUTHWASH MM SCH ×2 (07:05→20:00)
[2019-12-14] MEDS: Pantoprazole 40 MG VIAL IVP SCH (07:05)
[2019-12-14] MEDS: Aspirin Enteric Coated 81 MG Tablet PO SCH (07:05)
[2019-12-14] MEDS: Nystatin POWDER 30 GM BOTTLE TP SCH ×3 (07:05→20:02)
[2019-12-14] MEDS: QUEtiapine Fumarate 25 MG TABLET GTUBE SCH ×2 (07:05→20:01)
[2019-12-14] MEDS: Sennosides/Docusate Sodium TABLET GTUBE SCH ×2 (07:05→20:01)
[2019-12-14] MEDS: (Loxapine Succinate [Loxapine] 25 MG) PO SCH ×2 (07:06→20:02)
[2019-12-14] MEDS: Budesonide/Formoterol 160/4.5 1 PUFF INH IH SCH ×2 (09:30→19:36)
[2019-12-14] MEDS ORDERED: Amiodarone Premix 360 MG/200 ML BAG IVC ONE (09:50)
[2019-12-14] MEDS ORDERED: Amiodarone Premix 150 MG/100 ML BAG IVPB ONE ×2 (09:50→09:54)
[2019-12-14] MEDS ORDERED: *HR* Metoprolol 5 MG/5 ML VIAL IVP ONE (13:32)
[2019-12-14] MEDS: *HR* Metoprolol 5 MG/5 ML VIAL IVP SCH ×2 (13:46→18:52)
[2019-12-14] MEDS: Amiodarone Premix 360 MG/200 ML BAG IVC SCH (15:51)
[2019-12-14] MEDS: Norepinephrine 4 MG/254 ML IV.SOLN IVC SCH (18:51)
[2019-12-14] MEDS ORDERED: Insulin Human Regular 250 UNIT in 0.9 % Sodium Chloride 250 ML IVC SCH (20:45)
[2019-12-15] MEDS: Ipratropium/Albuterol Neb 3 ML IH SCH ×12 (00:25→21:52)
[2019-12-15] MEDS: methylPREDNISolone 125 MG/2 ML VIAL IVP SCH ×3 (00:33→15:09)
[2019-12-15] MEDS: Artificial Tears SOLN 15 ML BOTTLE BOTH EYES SCH ×6 (00:33→19:34)
[2019-12-15] MEDS: Midazolam HCl 50 MG/100 ML IV.SOLN IVC SCH ×2 (00:41→12:37)
[2019-12-15] MEDS: Amiodarone Premix 360 MG/200 ML BAG IVC SCH (03:36)
[2019-12-15] MEDS: Meropenem 1,000 MG in Water for inj. (sterile) 20 ML IVP SCH ×3 (04:06→19:33)
[2019-12-15 04:20] LABS: Basophils # 0.1 K/mcL (0.0-0.2); Basophils % 0.3 %; Eosinophils % 0.2 %; Hematocrit 30.4 % (37.5-50.1); Hemoglobin 9.4 g/dL (12.9-16.9); Immature Granulocytes % 2.1 % (0-4); Lymphocytes # 0.7 K/mcL (0.6-4.6); Lymphocytes % 3.7 %; Mean Corpuscular HGB Conc 30.9 g/dL (31.6-35.5); Mean Corpuscular Hemoglobin 27.6 pg (28.0-33.3); Mean Corpuscular Volume 89.1 fL (83.0-100.0); Mean Platelet Volume 9.5 fL (9.4-12.4); Monocytes # 1.1 K/mcL (0.0-1.3); Monocytes % 5.7 %; Neutrophils # 16.7 K/mcL (1.6-8.9); Nucleated Red Blood Cells 0.2 /100 WBC (0); Platelet Count 230 K/mcL (140-400); Red Blood Count 3.41 M/mcL (4.19-5.50); Red Cell Distribution Width 14.6 % (11.5-14.5)
[2019-12-15 04:33] LABS: Calcium 8.5 mg/dL (8.6-10.3); Magnesium 2.7 mg/dL (1.6-2.6); Phosphorous 3.4 mg/dL (2.7-4.5)
[2019-12-15 05:01] LABS: ABG Base Excess 1 mEq/L (-2 to 3); ABG HCO3 27 mEq/L (21-27); ABG Oxygen Saturation 96 % (95-98); ABG PCO2 48 mmHg (35-45); ABG PH 7.37 pH Units (7.32-7.45); ABG PO2 85 mmHg (85-104); ABG TCO2 29 mEq/L (20-26); Blood Gas Modality ASSIST CONTROL; Blood Gas VT 550 cc
[2019-12-15] MEDS: *HR* Heparin 5,000 UNIT/ML VIAL SQ SCH ×3 (05:45→22:33)
[2019-12-15] MEDS: Insulin Human Regular 100 UNIT in 0.9 % Sodium Chloride 100 ML IVC SCH ×2 (05:50→16:01)
[2019-12-15] MEDS: Budesonide/Formoterol 160/4.5 1 PUFF INH IH SCH ×2 (07:30→19:51)
[2019-12-15] MEDS: FentaNYL (PF) 2,500 MCG/50 ML IV.SOLN IVPB SCH (07:45)
[2019-12-15] MEDS: Sennosides/Docusate Sodium TABLET GTUBE SCH ×2 (07:56→19:34)
[2019-12-15] MEDS: Chlorhexidine Rinse 15 ML MOUTHWASH MM SCH ×2 (07:56→19:33)
[2019-12-15] MEDS: Pantoprazole 40 MG VIAL IVP SCH (07:56)
[2019-12-15] MEDS: Nystatin POWDER 30 GM BOTTLE TP SCH ×3 (07:56→19:35)
[2019-12-15] MEDS: QUEtiapine Fumarate 25 MG TABLET GTUBE SCH ×2 (07:58→19:34)
[2019-12-15] MEDS: (Loxapine Succinate [Loxapine] 25 MG) PO SCH ×2 (07:58→19:35)
[2019-12-15] MEDS: Aspirin Enteric Coated 81 MG Tablet PO SCH (07:59)
[2019-12-15] MEDS: *HR* Amiodarone 200 MG TABLET GTUBE SCH (09:40)
[2019-12-15] MEDS: *HR* Ticagrelor 90 MG TABLET GTUBE SCH ×2 (09:42→19:34)
[2019-12-15 16:20] LABS: Influenza A PCR Body Fluid NOT DETECTED; Influenza B PCR Body Fluid NOT DETECTED; RVP Body Fluid Source BAL
[2019-12-16] MEDS: Ipratropium/Albuterol Neb 3 ML IH SCH ×13 (00:02→23:31)
[2019-12-16] MEDS: Artificial Tears SOLN 15 ML BOTTLE BOTH EYES SCH ×7 (00:10→23:20)
[2019-12-16] MEDS: methylPREDNISolone 125 MG/2 ML VIAL IVP SCH ×2 (00:11→08:53)
[2019-12-16 04:14] LABS: ABG Base Excess 2 mEq/L (-2 to 3); ABG HCO3 26 mEq/L (21-27); ABG Oxygen Saturation 95 % (95-98); ABG PCO2 40 mmHg (35-45); ABG PH 7.43 pH Units (7.32-7.45); ABG PO2 75 mmHg (85-104); ABG TCO2 28 mEq/L (20-26); Blood Gas Modality ASSIST CONTROL; Blood Gas VT 550 cc
[2019-12-16 04:18] LABS: Hemoglobin 9.1 g/dL (12.9-16.9); Mean Corpuscular HGB Conc 31.4 g/dL (31.6-35.5); Mean Corpuscular Hemoglobin 28.3 pg (28.0-33.3); Mean Corpuscular Volume 90.3 fL (83.0-100.0); Mean Platelet Volume 9.6 fL (9.4-12.4); Platelet Count 223 K/mcL (140-400); Red Blood Count 3.21 M/mcL (4.19-5.50); Red Cell Distribution Width 15.1 % (11.5-14.5); White Blood Count 16.3 K/mcL (4.3-11.1)
[2019-12-16] MEDS: Meropenem 1,000 MG in Water for inj. (sterile) 20 ML IVP SCH ×3 (04:31→21:02)
[2019-12-16 04:32] LABS: BUN/Creatinine Ratio 62 (6-26); Blood Urea Nitrogen 90 mg/dL (6-20); Carbon Dioxide 27 mEq/L (23-29); Chloride 109 mEq/L (98-107); Glucose 153 mg/dL (70-105); Osmolality,Calculated 325 (280-300); Phosphorous 3.9 mg/dL (2.7-4.5); Potassium 4.6 mEq/L (3.5-5.1); Sodium 142 mEq/L (136-145); eGFR For African Americans > 60 (> 60); eGFR For Non-African Americans 51 (> 60)
[2019-12-16] MEDS: Midazolam HCl 50 MG/100 ML IV.SOLN IVC SCH (05:42)
[2019-12-16] MEDS: *HR* Heparin 5,000 UNIT/ML VIAL SQ SCH ×3 (05:43→21:02)
[2019-12-16] MEDS: Budesonide/Formoterol 160/4.5 1 PUFF INH IH SCH ×2 (07:28→19:46)
[2019-12-16] MEDS: Insulin Human Regular 100 UNIT in 0.9 % Sodium Chloride 100 ML IVC SCH ×2 (07:46→19:45)
[2019-12-16] MEDS: Nystatin POWDER 30 GM BOTTLE TP SCH ×3 (07:59→21:03)
[2019-12-16] MEDS: (Loxapine Succinate [Loxapine] 25 MG) PO SCH ×2 (08:02→21:03)
[2019-12-16] MEDS: *HR* Amiodarone 200 MG TABLET GTUBE SCH (08:53)
[2019-12-16] MEDS: Chlorhexidine Rinse 15 ML MOUTHWASH MM SCH ×2 (08:53→20:14)
[2019-12-16] MEDS: Pantoprazole 40 MG VIAL IVP SCH (08:53)
[2019-12-16] MEDS: Sennosides/Docusate Sodium TABLET GTUBE SCH ×2 (08:56→21:02)
[2019-12-16] MEDS: QUEtiapine Fumarate 25 MG TABLET GTUBE SCH ×2 (08:56→21:02)
[2019-12-16] MEDS: *HR* Ticagrelor 90 MG TABLET GTUBE SCH ×2 (08:57→21:02)
[2019-12-16] MEDS: Aspirin 81 MG TAB.CHEW GTUBE SCH (09:11)
[2019-12-16] MEDS: FentaNYL (PF) 2,500 MCG/50 ML IV.SOLN IVPB SCH (09:16)
[2019-12-16 15:29] LABS: RSV PCR Body Fluid NOT DETECTED
[2019-12-16 15:47] LABS: Influenza A PCR Body Fluid NOT DETECTED; Influenza B PCR Body Fluid NOT DETECTED; RVP Body Fluid Source BAL
[2019-12-16] MEDS: MethylPREDNISolone 40 MG/ML VIAL IVP SCH ×2 (16:08→23:22)
[2019-12-16 17:27] LABS: RSV PCR Body Fluid NOT DETECTED
[2019-12-17] MEDS: Insulin Human Regular 100 UNIT in 0.9 % Sodium Chloride 100 ML IVC SCH ×2 (00:24→07:36)
[2019-12-17] MEDS: Ipratropium/Albuterol Neb 3 ML IH SCH ×8 (01:29→15:10)
[2019-12-17] MEDS: Artificial Tears SOLN 15 ML BOTTLE BOTH EYES SCH ×5 (03:06→22:00)
[2019-12-17] MEDS: Meropenem 1,000 MG in Water for inj. (sterile) 20 ML IVP SCH ×2 (03:29→12:07)
[2019-12-17 03:31] LABS: Hemoglobin 9.7 g/dL (12.9-16.9); Mean Corpuscular HGB Conc 30.3 g/dL (31.6-35.5); Mean Corpuscular Hemoglobin 27.7 pg (28.0-33.3); Mean Corpuscular Volume 91.4 fL (83.0-100.0); Mean Platelet Volume 9.4 fL (9.4-12.4); Platelet Count 259 K/mcL (140-400); Red Cell Distribution Width 15.5 % (11.5-14.5); White Blood Count 20.6 K/mcL (4.3-11.1)
[2019-12-17 03:50] LABS: BUN/Creatinine Ratio 68 (6-26); Blood Urea Nitrogen 82 mg/dL (6-20); Carbon Dioxide 30 mEq/L (23-29); Chloride 113 mEq/L (98-107); Potassium 5.3 mEq/L (3.5-5.1); Sodium 150 mEq/L (136-145)
[2019-12-17 03:51] LABS: Calcium 9.1 mg/dL (8.6-10.3); Glucose 97 mg/dL (70-105); Magnesium 2.7 mg/dL (1.6-2.6); Osmolality,Calculated 335 (280-300); Phosphorous 4.3 mg/dL (2.7-4.5); eGFR For African Americans > 60 (> 60); eGFR For Non-African Americans > 60 (> 60)
[2019-12-17 04:12] LABS: ABG Base Excess 4 mEq/L (-2 to 3); ABG HCO3 30 mEq/L (21-27); ABG Oxygen Saturation 98 % (95-98); ABG PCO2 52 mmHg (35-45); ABG PH 7.37 pH Units (7.32-7.45); ABG PO2 109 mmHg (85-104); ABG TCO2 32 mEq/L (20-26); Blood Gas Modality ASSIST CONTROL; Blood Gas VT 550 cc
[2019-12-17] MEDS: *HR* Heparin 5,000 UNIT/ML VIAL SQ SCH ×2 (05:10→14:38)
[2019-12-17] MEDS: Budesonide/Formoterol 160/4.5 1 PUFF INH IH SCH (07:46)
[2019-12-17] MEDS: Nystatin POWDER 30 GM BOTTLE TP SCH ×3 (08:09→22:00)
[2019-12-17] MEDS: (Loxapine Succinate [Loxapine] 25 MG) PO SCH ×2 (08:10→21:59)
[2019-12-17] MEDS: MethylPREDNISolone 40 MG/ML VIAL IVP SCH (08:14)
[2019-12-17] MEDS: Aspirin 81 MG TAB.CHEW GTUBE SCH (08:14)
[2019-12-17] MEDS: QUEtiapine Fumarate 25 MG TABLET GTUBE SCH (08:15)
[2019-12-17] MEDS: Sennosides/Docusate Sodium TABLET GTUBE SCH (08:15)
[2019-12-17] MEDS: Pantoprazole 40 MG VIAL IVP SCH (08:15)
[2019-12-17] MEDS: *HR* Ticagrelor 90 MG TABLET GTUBE SCH (08:15)
[2019-12-17] MEDS: *HR* Amiodarone 200 MG TABLET GTUBE SCH (08:15)
[2019-12-17] MEDS: Chlorhexidine Rinse 15 ML MOUTHWASH MM SCH ×2 (08:16→22:00)
[2019-12-17] MEDS ORDERED: Docusate Oral Soln 100 MG/10 ML UDC GTUBE SCH (09:00)
[2019-12-17] MEDS ORDERED: *HR* LORazepam 2 MG/ML VIAL ONE (14:47)
[2019-12-17] MEDS: *HR* LORazepam 2 MG/ML VIAL IVP PRN ×7 (14:52→23:25)
[2019-12-17] MEDS ORDERED: Dexamethasone 4 MG/ML VIAL IVP ONE (15:33)
[2019-12-17] MEDS: Glycopyrrolate 0.2 MG/ML VIAL IVP PRN (15:51)
[2019-12-17] MEDS: FentaNYL (PF) 2,500 MCG/50 ML IV.SOLN IVPB SCH (15:58)
[2019-12-17] MEDS ORDERED: MORPHINE SULFATE IVC SCH (21:30)
[2019-12-17] MEDS ORDERED: SODIUM CHLORIDE 0.9% IVC SCH (21:30)
[2019-12-17] MEDS ORDERED: 0.9 % Sodium Chloride 250 ML ONE (23:14)
[2019-12-18] MEDS: *HR* LORazepam 2 MG/ML VIAL IVP PRN ×6 (03:07→20:39)
[2019-12-18] MEDS ORDERED: Scopolamine Patch 1.5 MG PATCH.TD72 TD SCH (09:45)
[2019-12-18] MEDS: (Loxapine Succinate [Loxapine] 25 MG) PO SCH (09:54)
[2019-12-18] MEDS: Chlorhexidine Rinse 15 ML MOUTHWASH MM SCH (09:54)
[2019-12-18] MEDS: Nystatin POWDER 30 GM BOTTLE TP SCH ×3 (09:54→20:40)
[2019-12-18] MEDS: Artificial Tears SOLN 15 ML BOTTLE BOTH EYES SCH ×4 (09:54→20:40)
[2019-12-18] MEDS ORDERED: Morphine Sulfate 2 MG/ML SYRINGE IVP PRN (09:55)
[2019-12-18] MEDS: Glycopyrrolate 0.2 MG/ML VIAL IVP PRN (10:02)
[2019-12-18] MEDS ORDERED: Glycopyrrolate 0.2 MG/ML VIAL IVP PRN (10:33)
[2019-12-18] MEDS ORDERED: 0.9 % Sodium Chloride 250 ML ONE (11:33)
[2019-12-18] MEDS: SODIUM CHLORIDE 0.9% IVC SCH ×3 (11:59→23:50)
[2019-12-18] MEDS: MORPHINE SULFATE IVC SCH ×3 (11:59→23:50)
[2019-12-18] MEDS: Atropine Sulfate 1% 40 DROP/2 ML BOTTLE SL PRN ×2 (15:09→20:40)
[2019-12-18 19:53] LABS: HSV Source BAL LLL; HSV Source BAL RLL
[2019-12-19] MEDS: Artificial Tears SOLN 15 ML BOTTLE BOTH EYES SCH ×2 (00:33→03:11)
[2019-12-19] MEDS ORDERED: 0.9 % Sodium Chloride 250 ML ONE (00:36)
[2019-12-19] MEDS: Atropine Sulfate 1% 40 DROP/2 ML BOTTLE SL PRN (01:40)
[2019-12-19] MEDS: *HR* LORazepam 2 MG/ML VIAL IVP PRN ×2 (03:11→06:06)
[2019-12-19 04:02] VITALS: BP 111/67
[2019-12-19] MEDS: MORPHINE SULFATE IVC SCH (05:30)
[2019-12-19] MEDS: SODIUM CHLORIDE 0.9% IVC SCH (05:30)
[2019-12-21] MEDS ORDERED: Scopolamine Patch 1.5 MG PATCH.TD72 TD SCH (09:45)
== END 2019-12-19 11:30 | disposition expired | DRG 120 ==
LOC: SAMDAY 14:00 → 2NNU 21:06 → ICNU 12-12 06:38
PROVIDERS: ADMIT Thoracic Surgery (Cardiothoracic Vascular Surgery); ATTEND Thoracic Surgery (Cardiothoracic Vascular Surgery)